=== PATIENT | male | born 1965 | race Caucasian/White ===

== ENCOUNTER 2017-12-22 21:37 | Emergency (ER) | payer BC ==
[~2017-12-22] VITALS: Ht 182.9 cm; Wt 101.2 kg
[~2017-12-22 21:37] MED LIST: Coumadin,Jantoven PO; ENDOCET 5-3251 EACH PO; Feosol PO; SENOKOT S,PE1 TABLET PO; Tylenol Regular Stre PO
[2017-12-22 23:01] VITALS: BP 161/99
== END 2017-12-22 23:02 | disposition home or self-care (01) ==
LOC: EME 21:37
DX: Z03.89 Encounter for observation for other suspected diseases and conditions ruled out (principal); Z79.01 Long term (current) use of anticoagulants
CPT/HCPCS: 70360; 71046; 74018; 99281; 99283